=== PATIENT | female | born 1955 | race Caucasian/White ===

== ENCOUNTER → 2017-11-03 | Outpatient (CLI) | payer MEDICARE ==
[~2017-11-03] MED LIST: ASPIR 8181 M1 PO; CALCIUM PO; GABAPENTIN PO; HYDROCODONE PO; METOPROLOL TART25 MG PO; MOBIC15 MG PO; SIMVASTATIN40 MG PO; TYLENOL EXTRA500 MG PO; VITAMIN D PO
--- NOTE | 2017-11-11 08:21 | PAINCON ---
[address] [address] PAIN MANAGEMENT CONSULTATION Name: LIBRADO ACKERMAN Room: [facility].#: [id number] Admission: 11/03/17 Attend Phys: Demar Diggs MD Discharge: Date of : 55 Report #: [id number] THIS REPORT FOR: //name// CC: BETHANY Diggs DATE OF SERVICE: 11/03/2017 CHIEF COMPLAINT: Thoracic back pain. HISTORY OF PRESENT ILLNESS: The patient is a 61-year-old female who has been followed in [place], [place]. She has had some medical problems. Her son lives in [place]. She is moving to the [facility] area to be closer to her son, so that he can "watch over her." She has had some low back pains as a result of compression fractures. She has had two in the lower back and one at about T4. She underwent a kyphoplasty at T8 in 2011 as well as another kyphoplasty in the lower back in 2015. She is living with her son at this juncture. ADDENDUM ALLERGIES: ADVERSE REACTION TO VALIUM. CURRENT MEDICATIONS: Tylenol 500 mg b.i.d., aspirin 81 mg daily, metoprolol 25 mg daily, Zocor 40 mg in the evening, calcium 600 mg daily, gabapentin 400 mg t.i.d., hydrocodone 7.5 mg every 4-6 hours p.r.n., vitamin D1 50,000 units q. 14 days. PAST MEDICAL HISTORY: Osteoporosis with frequent compression fractures, breast cancer, hypertension, and myocardial infarct. PAST SURGICAL HISTORY: Appendectomy in 1976, mastectomy left breast in 2006, in 1991, cerclage in 1991, kyphoplasty of T8 in 2011 and of T12 in 2015. SOCIAL HISTORY: She is disabled, has not worked since May of 2017. REVIEW OF SYSTEMS: Generally good health, fatigue, weakness, headaches, chest pain/angina, joint pain, joint stiffness, joint swelling, muscle pain/cramps, back pain, difficulty walking, and frequent reoccurring headaches. LABORATORY DATA: MRI of the thoracic spine without contrast with comparison to 08/20/2016 MRI and 05/19/2017 radiographs. History of T4 vertebral body fracture on prior MRI. Impression: 1. Stable T4 compression fracture. Mild edema [place] [address] PAIN MANAGEMENT CONSULTATION Name: LIBRADO ACKERMAN Room: [facility]#: [id number] Admission: 11/03/17 Attend Phys: Demar Diggs MD Discharge: Date of : 55 Report #: [id number] superior endplate. 2. Stable T8 and T12 compression deformities with vertebroplasty changes. 3. Small midline disk protrusion at T7/T8. PAIN CLINIC ASSESSMENT: 1. History of osteoporosis with compression fractures at 3 areas, T4, T8, and T12. 2. The patient's height is 5 feet 4 inches, weight 126 pounds, BMI is 21. 3. Vital signs: Blood pressure 124/67, heart rate 112, respiratory rate 16, room air saturation 98%, temperature 98.9. 4. Pain intensity 6/10. 5. Fall risk: The patient has not fallen, but did stumble while putting on her socks. 6. Blood thinner: The patient is not on a blood thinner. 7. History of hypertension. The patient is not being treated for hypertension. 8. Opioid therapy greater than 6 weeks: The patient has been on opioid therapy greater than 8 weeks. 9. Risk assessment tool. 10. Functional assessment tool. 11. Recreational drug use. The patient denies use of recreational drugs. 12. Tobacco use: The patient has 45-year history of tobacco use, is smoking between 1 and 10 cigarettes per day. 13. Alcohol. Denies use of alcoholic beverages. PHYSICAL EXAMINATION: GENERAL: The patient is a well-developed white female. She appears her stated age. ORIENTATION: The patient is alert and oriented x 3. AFFECT: The patient's affect appears appropriate. HEENT: Normocephalic, atraumatic. Extraocular eye muscles are intact. Hearing within normal limits. Mouth, mucous membranes moist. Sclerae not injected, nonicteric. NECK: Without JVD or adenopathy. CHEST: Clear to auscultation. HEART: Regular rate. ABDOMEN: Nontender, without organomegaly. MUSCULOSKELETAL: The patient has a slight kyphotic habitus. Upper extremity muscle strength is judged to be 5/5 for the major muscle groups. Sensation is within normal limits. Senior Sales Consultant strength is 5/5. The patient has +1 deep tendon reflexes at the knees. Muscle strength is judged to be 5/5 for the major muscle groups with symmetry. She complains of pain and discomfort in the mid back at approximately T7-T8, which she states is throbbing. Notes pain and discomfort in the left and right buttocks areas with throbbing as a stabbing sensation in the mid back area as well. IMPRESSION: [facility] [address] [place] [address] PAIN MANAGEMENT CONSULTATION Name: LIBRADO ACKERMAN Room: [facility] Rich#: [id number] Admission: 11/03/17 Attend Phys: Demar Diggs MD Discharge: Date of : 55 Report #: [id number] 1. Thoracic pain, history of compression fractures of T4, T8, and T12. 2. Osteoporosis. 3. Myocardial infarct. 4. Tobacco use. 5. Hypertension. 6. History of breast cancer. RECOMMENDATIONS: We discussed treatment options with the patient. Risks and benefits of continued opioid use were discussed. Possible complications of these were discussed. We explained that opioid medications are being significantly reviewed in the media as well as in their daily use. She states that her pain is quite problematic. She would not be near as active as this without use of the opioid medication. Denies any problems with it. States that she is only taking the medication as prescribed. States that she has only gotten the medication from 1 provider, which is her primary care physician, which she has known for about 10 years in [facility]. She will get her old records. We will review them. If there are no encumbrances, we will consider options in the near future. We would like to thank you for letting us participate in her care. We hope she continues to improve. <ELECTRONICALLY SIGNED> By: Demar Diggs MD 11/11/17 0821 [id number]. Evelio Diggs MD /nt
== END ==
LOC: M.PC 01:47
DX: I10 Essential (primary) hypertension (principal); M81.0 Age-related osteoporosis without current pathological fracture; I21.9 Acute myocardial infarction, unspecified; Z85.3 Personal history of malignant neoplasm of breast; Z72.0 Tobacco use

== ENCOUNTER → 2017-12-22 | Outpatient (CLI) | payer MEDICARE ==
--- NOTE | 2018-01-20 13:42 | PAINCON ---
[address] [address] PAIN MANAGEMENT CONSULTATION Name: LIBRADO ACKERMAN Room: [facility].#: [id number] Admission: 12/22/17 Attend Phys: Demar Diggs MD Discharge: Date of : 55 Report #: [id number] THIS REPORT FOR: //name// CC: BETHANY Diggs DATE OF SERVICE: 12/22/2017 FOLLOWUP COMPLAINT: Here for medications. FOLLOWUP HISTORY: The patient is a 62-year-old female. As you recall, she suffers from osteoporosis. She has had a number of compression fractures involving the T4 as well as T8 and T12 compression fractures. Because of these fractures, she continues to have pain and discomfort in her upper back. She generally lives in [place], [place]. Her son lives in [place]. She is moving in this direction in order to be closer to him. She states that she is being followed by a new primary care physician. Continues to have pain and discomfort on the right side. She describes it as sharp. Pain is worse with activities of daily living, changes in temperature, walking, prolonged standing, sitting, climbing stairs, bending, and lifting as well as changes in the weather. Feels that her medication is helpful to a degree. Rates her pain as a 4-5. The patient states that her pain is still quite problematic. Because of this pain, she stays in the bed, quite a bit, has been experiencing muscle spasms. She finds that the Donald 7.5 mg and the gabapentin continue to be beneficial. ALLERGIES: ADVERSE REACTION TO VALIUM. CURRENT MEDICATIONS: Tylenol 500 mg b.i.d., aspirin 81 mg daily, metoprolol 25 mg daily, Zocor 40 mg in the evening, calcium 600 mg daily, gabapentin 400 mg t.i.d., hydrocodone 57.5/325 q.4-6 hours p.r.n., and vitamin D1 50,000 units subq every 14 days. PAIN ASSESSMENT: 1. History of osteoporosis with history of compression fractures at 3 levels T4, T8, and T12. 2. Pain intensity is 4-5/10. 3. Fall risk. The patient has not fallen in the last 3 months. 4. Blood thinner. The patient is not on a blood thinning agent. 5. Hypertension. The patient is not being treated for hypertension. 6. Opioid therapy. The patient has been using opioid therapy. She has been on this greater than 8 weeks. 7. Risk assessment tool. 8. Functional assessment total. 9. Recreational drug use. The patient denies [place] [address] PAIN MANAGEMENT CONSULTATION Name: LIBRADO ACKERMAN [id number] Admission: 12/22/17 Attend Phys: Demar Diggs MD Discharge: Date of : 55 Report #: [id number] 10. Tobacco: The patient has a 45-year of history of tobacco use and he is smoking 1-10 cigarettes daily. 11. Alcohol. Denies use of alcoholic beverages. PHYSICAL EXAMINATION: VITAL SIGNS: Blood pressure 128/71, heart rate 85, respiratory rate 16, room air saturation 94%, and temperature 98.7. GENERAL: The patient is a well-developed, well-nourished white female. She appears her stated age. She is alert and oriented x 3. Her affect is appropriate. Speech is fluent. Height 5 feet 4 inches, weight 128 pounds, and BMI is 22. HEENT: Normocephalic and atraumatic. Extraocular eye muscles intact. Hearing is within normal limits. Mouth is moist. Sclerae not injected. Hearing is within normal limits. NECK: Without adenopathy or JVD. CHEST: Clear to auscultation without rhonchi or rales. HEART: Regular rate, S1, S2. ABDOMEN: Nontender without organomegaly. MUSCULOSKELETAL: The patient has a slight kyphotic habitus. Upper extremity and muscles judged to be 5/5 for the major muscle groups. Sensation is within normal limits. Heart Coordinator strength 5/5. The patient has deep tendon reflexes +1 at the knees bilaterally. Muscle strength is judged to be 5/5 for the major muscle groups in the lower extremity. She complains of pain and discomfort in the mid back area at approximately T7/T8. States that there is a throbbing sensation. She has pain and discomfort in the left as well in the right buttocks area with some stabbing sensation in the mid back as well. IMPRESSION: 1. Thoracic pain. History of compression fractures at T4, T8, and T12. 2. Osteoporosis. 3. Myocardial infarct. 4. Tobacco use. 5. Hypertension. 6. History of breast cancer. RECOMMENDATIONS: We discussed treatment options with the patient. At this juncture, we will continue with her current level of oxycodone 7.5 mg one p.o. q.4-6 hours p.r.n. The patient has also been written for a script for meloxicam 15 mg 1 p.o. daily. She will note her GI status. If she notes that she is having some GI problems, she will stop [place] [address] PAIN MANAGEMENT CONSULTATION Name: LIBRADO ACKERMAN Room: [facility]#: [id number] Admission: 12/22/17 Attend Phys: Demar Diggs MD Discharge: Date of : 55 Report #: [id number] We would like to thank you for letting us to participate in her care. We hope she continues to improve. <ELECTRONICALLY SIGNED> By: Demar Diggs MD 01/20/18 1342 [id number]. Evelio Diggs MD /PMT
== END ==
LOC: M.PC 02:16
DX: M54.5 Low back pain (principal)